=== PATIENT | male | born 1950 | race Caucasian/White ===

== ENCOUNTER 2022-01-15 01:19 | Day surgery (SDC) | payer MEDICARE, OTHER, SELFPAY ==
[2021-12-28 13:06] VITALS: BMI 27.3
[2022-01-15 08:35] VITALS: BP 136/73; PULSE 63; RESP 18; TEMP 36.1; O2SAT 100
[2022-01-15] MEDS: LACTATED RINGERS 1,000 ML 150 ML IV CONT (08:43)
--- NOTE | 2022-01-15 08:46 | P.PNAN_ITS ---
Anes - Initial Pre Proc Eval Procedure: Operation Date: 01/15/22 10:00 Proposed Procedures p Screening Colonoscopy - Jonathan Cast MD Date/Time: 01/15/22 08:46 Surgeon: Jonathan Cast MD Pre Op Diagnosis: neoplasm screening Patient Data Age: 71 Gender: M Height: 1.93 m Weight: 95.7 kg Last Vital Signs Temp 36.1 C L 01/15/22 08:35 Pulse 63 01/15/22 08:35 Resp 18 01/15/22 08:35 BP 136/73 01/15/22 08:35 Pulse Ox 100 01/15/22 08:35 O2 Del Method Room Air 01/15/22 08:35 Allergies Allergy/AdvReac Type Severity Reaction Status Date / Time No Known Allergies Allergy Unknown Verified 01/15/22 08:33 Home Medications Medication Instructions Recorded Confirmed Type gabapentin 600 mg tablet 600 mg PO QID PRN pain #360 tabs 08/21/21 12/28/21 Rx doxycycline monohydrate 100 mg 100 mg PO BID 12/28/21 12/28/21 History capsule zolpidem 10 mg tablet 10 mg PO QHS #30 tabs 12/31/21 01/15/22 Rx Patient hx anesthesia problems: none Family hx anesthesia problems: none Results Review: All pre-operative results and documents have been reviewed as part of the pre- operative evaluation. [facility] Past Medical History Medical History BCC (basal cell carcinoma of skin) IFG (impaired fasting glucose) Neuroma Surgical History Surgical History History of appendectomy History of elbow surgery History of foot operation History of shoulder surgery Family History Family History Father Diabetes mellitus Hypertension Family history of cardiovascular disease Family history of diabetes mellitus in first degree relative Family history of heart disease in male family member before age 55 Mother Family history of hypercholesterolemia Cerebrovascular accident Sibling Family history of malignant neoplasm of stomach Grandparent Family history of heart disease in male family member before age 55 Social History Social History Smoking status: Never smoker Second hand tobacco smoke exposure: No Alcohol intake: never Substance use: never Substance use type: does not use Living arrangements: with family Gender identity (if verbalized by the patient): Male Sexual Orientation (if Verbalized by the Patient): Straight or Heterosexual Spiritual care concerns: No Anes - Eval Final PreProcedure Day of Procedure 01/15/22 08:46 Patient weight: normal Heart: regular rate and rhythm Airway: Mallampati scale class II Neurological: alert and oriented Last oral intake: >/= 8 hours ASA classification: II Emergent: no Anesthetic plan: proceed Anesthesia type and monitoring: general GIVS and standard monitoring Results Review: All pre-operative results and documents have been reviewed as part of the pre- operative evaluation. Informed Consent: The patient's anesthetic plan and its attendant risks and benefits were discussed with the patient/family/POA. Questions were solicited and answers provided to the satisfaction of the patient/family/POA.
--- NOTE | 2022-01-15 09:10 | PM.HPGS ---
History of Present Illness History of Present Illness Consent: Risks, benefits, and alternatives have been discussed and questions answered. Patient agrees to proceed with procedure. Chief complaint: neoplasm screening Narrative: Tashi Cobb is a 71 year old male Presents for screening colonoscopy. Patient reports that his current weight appetite and bowel movements are normal. Patient denies abdominal pain. He has had no bleeding. Family history is noncontributory. Patient's last colonoscopy 12 years ago was unremarkable. Review of Systems Review of Systems: Review of systems noncontributory. PMFSH Past Medical History Medical History BCC (basal cell carcinoma of skin) IFG (impaired fasting glucose) Neuroma Surgical History Surgical History History of appendectomy History of elbow surgery History of foot operation History of shoulder surgery Family History Family History Father Diabetes mellitus Hypertension Family history of cardiovascular disease Family history of diabetes mellitus in first degree relative Family history of heart disease in male family member before age 55 Mother Family history of hypercholesterolemia Cerebrovascular accident Sibling Family history of malignant neoplasm of stomach Grandparent Family history of heart disease in male family member before age 55 Social History Social History Smoking status: Never smoker Second hand tobacco smoke exposure: No Alcohol intake: never Substance use: never Substance use type: does not use Living arrangements: with family Gender identity (if verbalized by the patient): Male Sexual Orientation (if Verbalized by the Patient): Straight or Heterosexual Spiritual care concerns: No Meds Home Medications and Allergies Home Medications Medication Instructions Recorded Confirmed Type gabapentin 600 mg tablet 600 mg PO QID PRN pain #360 tabs 08/21/21 12/28/21 Rx doxycycline monohydrate 100 mg 100 mg PO BID 12/28/21 12/28/21 History capsule zolpidem 10 mg tablet 10 mg PO QHS #30 tabs 12/31/21 01/15/22 Rx Allergies Allergy/AdvReac Type Severity Reaction Status Date / Time No Known Allergies Allergy Unknown Verified 01/15/22 08:33 Vital Signs Vital Signs - 24 hr 01/15/22 08:35 Temperature 97 F L Pulse Rate 63 Respiratory Rate 18 Blood Pressure 136/73 Pulse Oximetry 100 Oxygen Delivery Room Air Exam Narrative: Physical exam reveals patient be alert. Vital signs stable. HEENT exam is unremarkable. Patient is anicteric. Lungs are clear to auscultation and percussion. Heart is without murmur or extra sounds. Abdomen bowel sounds are present soft nontender with no organomegaly. Digital external rectal exam is normal. Assessment and Plan Assessment and plan (1) Encounter for screening colonoscopy: Code(s): Z12.11 - Encounter for screening for malignant neoplasm of colon Status: Acute Assessment and Plan: Patient presents today for screening colonoscopy. He appears to be at average risk for colon polyps. Further recommendations may be given after endoscopy.
[2022-01-15 09:40] VITALS: BP 102/67; PULSE 51; RESP 14; O2SAT 100
[2022-01-15 09:50] VITALS: BP 109/63; PULSE 51; RESP 17; O2SAT 99
== END 2022-01-15 10:08 | disposition home or self-care (01) ==
PROVIDERS: PCP Family Medicine; Visit Provider Internal Medicine Gastroenterology
PROC: 0DJD8ZZ Inspection of Lower Intestinal Tract, Via Natural or Artificial Opening Endoscopic (ICD-10-PCS; CPT 45378; principal; 2022-01-15 10:00)
DX: Z12.11 Encounter for screening for malignant neoplasm of colon (principal); K64.8 Other hemorrhoids; K57.30 Diverticulosis of large intestine without perforation or abscess without bleeding
CPT/HCPCS: G0121; J2001; J2704; J7120